=== PATIENT | female | born 1995 | race Two or more races ===

== ENCOUNTER 2024-07-18 14:58 | Outpatient (CLI) | payer OTHER, SELFPAY ==
--- NOTE | ~2024-07-18 | US_ITS ---
Pelvic ultrasound. Clinical History: Pelvic pain Technique: Realtime transabdominal and transvaginal scanning of the pelvis was performed. Color flow Doppler and Doppler spectral analysis were performed. Findings: The uterus is anteverted, and measures 8.3 x 4.1 x 5.3 cm. The endometrial stripe has a th ickness of 4 mm. Probable partially exophytic lower uterine segment anterior fibroid measuring 1.9 cm in diameter.. The right ovary measures 3.1 x 2.3 x 1.5 cm. No significant right ovarian or adnexal mass is seen. The left ovary measures 2.7 x 1.3 x 1.5 cm. No significant left ovarian or adnexal mass is seen. Vascular flow present in both ovaries on Doppler spectral analysis. There is trace free fluid in the cul de sac. Impression: Probable 1.9 cm uterine fibroid, as above. Trace free fluid. Reviewed, dictated and finalized at [facility]. Impression: Probable 1.9 cm uterine fibroid, as above. Trace free fluid.
== END 2024-07-18 14:59 | disposition home or self-care (01) ==
LOC: ANHIMG 14:59
PROVIDERS: Visit Provider Obstetrics & Gynecology
DX: R10.2 Pelvic and perineal pain (principal)
CPT/HCPCS: 76830; 76856